=== PATIENT | male | born 1955 | race Caucasian/White ===

== ENCOUNTER 2018-03-12 11:55 | Emergency (ER) | payer SELFPAY ==
--- NOTE | 2018-03-12 13:34 | ER Document Report ---
ED Medical Screen (RME) - General TRAVEL OUTSIDE OF THE [place] IN LAST 30 DAYS: No - General Chief Complaint: Psych Problem Stated Complaint: FALL Time Seen by Provider: 03/12/18 12:23 Notes: 62 years old male presents today because of multiple falls and questionable suicidal ideation, homeless. He has a warrant for arrest for child abuse. He had a court date yesterday which he missed. History of Present Illness Chief Complaint: [ ] [ ] [] suicidal ideation [No] homicidal ideation [No] acute psychotic features History obtained from [patient] 62 years old male with multiple visits and substance abuse, police wanted him for the above. Presents today saying that he has been falling. He had a court date yesterday which he did not show up. According to the records given by the mental health department. And minor bruises in the left and right forearm. Denies any suicidal plan. Symptoms began: [past few days] Onset: [ gradual] Timing: [ constant] Quality: [As above ] Intensity: [ moderate to severe] Location: [ generalized] Radiation: [none] Migration: [none] Aggravating factors: [none] Relieving factors: [none] Review of Systems: All other systems negative as reviewed. CONSTITUTIONAL No Fever. EYES No eye pain. ENT No sore throat CARDIOVASCULAR No chest pain. RESPIRATORY No SOB. GI No abdominal pain, no vomiting, no diarrhea. GENITOURINARY No dysuria. SKIN No rash. NEUROLOGIC No headache. MUSCULOSKELETAL No back pain. Physical Exam CONSTITUTIONAL Vital signs reviewed, Patient has normal respiratory rate, Well appearing, Patient appears comfortable, normal stature. HEAD Atraumatic, Normocephalic. EYES Eyes are normal to inspection. ENT Ears normal to inspection, Nose examination normal. NECK No jugular venous distention. RESPIRATORY CHEST Breath sounds normal, No respiratory distress. CARDIOVASCULAR RRR, No murmurs, Normal S1 S2, No rub, No gallop. ABDOMEN Abdomen is nontender, No masses, Bowel sounds normal, No distension, No peritoneal signs. BACK Normal inspection. UPPER EXTREMITY Inspection normal. Multiple minor bruises noted in the forearm LOWER EXTREMITY Inspection cornel. NEURO No focal motor deficits. SKIN Skin is warm, Skin is dry, Skin is normal color. PSYCHIATRIC [Normal] affect.[ ] (ZACKERY VERONICA) - HPI Notes: 03/12/18 13:54 Dictated (ZACKERY VERONICA) - Related Data Allergies/Adverse Reactions: Penicillins Allergy (Verified 03/12/18 12:16) Past Medical History - Social History Chew tobacco use (# tins/day): No Frequency of alcohol use: Heavy Drug Abuse: Cocaine, Methamphetamine Lives with: Family Family history: Reviewed & Not Pertinent Pulmonary Medical History: Reports: Hx COPD Renal/ Medical History: Denies: Hx Peritoneal Dialysis Psychiatric Medical History: Reports: Hx Depression - anxiety Review of Systems - Review of Systems Notes: Dictated (ZACKERY VERONICA) Physical Exam - Vital signs Vitals: Temp Pulse Resp BP Pulse Ox 98.1 F 88 16 144/93 H 100 03/12/18 12:00 03/12/18 12:00 03/12/18 12:00 03/12/18 12:00 03/12/18 12:00 - Notes Notes: Dictated (ZACKERY VERONICA) Course - Re-evaluation Re-evalutation: 03/12/18 13:54 He was fully evaluated by mental health department. Recommended to be discharged. (ZACKERY VERONICA) - Vital Signs Vital signs: Temp Pulse Resp BP Pulse Ox 98.1 F 88 16 144/93 H 100 03/12/18 12:00 03/12/18 12:00 03/12/18 12:00 03/12/18 12:00 03/12/18 12:00 Doctor's Discharge - Discharge Clinical Impression: Alcohol abuse Depression Qualifiers: Depression Type: unspecified Qualified Code(s): F32.9 - Major depressive disorder, single episode, unspecified Condition: Stable Disposition: HOME, SELF-CARE Additional Instructions: You have been evaluated by both medical and behavioral health teams and have been deemed appropriate for discharge. You have been provided resource list of local mental health and substance abuse providers in addition to the homeless coalition packet. Please contact [facility], [facility], for any acute psychiatric assistance. CHRONIC ALCOHOLISM and ALCOHOL ABUSE: Your evaluation reveals evidence of chronic alcoholism, an addiction to alcohol. The tendency to alcoholism may be inherited. Chronic use of alcohol weakens muscles, causes fatty deposits in the liver , damages the stomach, makes you more prone to infections, and can cause defects in unborn children. In the long run, brain atrophy and cirrhosis of the liver result. You are also at greater risk for certain types of cancer, such as cancer of the mouth, throat, stomach, and liver. Counselling services are available to help you. In-hospital treatment programs often help. Support groups such as Alcoholics Anonymous can be very useful in beating this addiction. Your physician can make a referral for you. As alcoholics often are prone to other addictions, you should discuss your use of any other medications with the doctor. DEPRESSION: Your evaluation reveals that you have mental depression. While symptoms may be vague, they often include disturbance of sleep, fatigue, loss of appetite , and general loss of interest in life. While depression may be a side effect of drugs, or a reaction to a major change in your life, many cases have no known cause. If depression is acute, and related to a major loss in your life, you can expect it to clear completely with time. If you have been depressed a long time , are prone to repeated bouts of depression or low mood, or have been thinking of suicide, get help. Depression can be treated with anti-depressant medication and counselling. Long-term depression will often take a few weeks to clear, even with appropriate medication. Follow-up care is important. SUICIDAL IDEATION: Suicidal ideation is a common medical term for thoughts about suicide, which may be as detailed as a formulated plan, without the suicidal act itself. Although most people who undergo suicidal ideation do not commit suicide, some go on to make suicide attempts. The range of suicidal ideation varies greatly from fleeting to detailed planning, role playing, and unsuccessful attempts. While thoughts about suicide are common, most people do not carry out serious actions to commit suicide. Based upon your evaluation and discussion with you, we do not believe you are currently at risk to act upon your thoughts of suicide. You have agreed to return to the Emergency Department, at any time , if you feel inclined to act upon your suicidal thoughts. FOLLOW-UP CARE: If you experience worsening or a significant change in your symptoms, notify the physician immediately or return to the Emergency Department at any time for re-evaluation. Referrals: [facility] [Outside] - Follow up as needed
[2018-03-12 14:04] VITALS: BP 173/94
--- NOTE | 2018-03-12 16:17 | PSYCHOLOGICAL NOTE ---
Psych Note - Psych Note Date seen by psych provider: 03/12/18 Time seen by psych provider: 12:00 Psych Note: Reason for Consult: suicidal ideation 62 years old male presents today because of multiple falls and questionable suicidal ideation, homeless. Patient discloses that he has just been released from care home after being in it for 2 months. He states that prior to that he was at [facility] for attempted suicide. He states he was there for 3 days and was discharged with 30 days worth of medications; "I am out of medication now." He continued to disclose that while he was in care home and [facility] he did not receive his psychiatric medications consistently. He states that he has been very depressed because he has never had been in care home before and so has been very difficult for him. He continued to disclose that he is an alcoholic and has been drinking. 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 He continued disclosed that he applied for disability however last week on Friday received a letter in the mail asking him to submit some more paperwork and that overwhelmed him. He stated he came in because he decided he "did not want to ." He reports he does have plans to live with his cousin and was going to go there today or tomorrow. He states he does not have any money right now and had to borrow money for the cab to [facility] ED. Behavior health team contacted [facility] to obtain patient' s discharge plan which include medication recommendations. [facility] behavioral [facility] team indicates they have no record of patient receiving services from them. Patient is alert and orientated to person, place, time and circumstance. Mood is euthymic with congruent affect. Patient endorses passive suicidal ideation i.e. no plans means or intent. Patient denies homicidal ideation. Delusions are absent behaviors congruent with an intact reality based presentation i.e. organized linear thought process. Eye contact is fair. Conversational speech was within normal rate, tone and prosody. Intellectual abilities appear to be within the average range. Attention and concentration are fair. Insight, judgment, impulse control are fair. No medication recommendations at this time 291.9 (F10.99) unspecified alcohol related disorder per history provided by patient V62.5 (Z65.3) problems related to other legal circumstances V60.0 (Z59.0) homelessness Impression\\plan: Patient is cleared from acute psychiatric services. Patient does not meet IVC criteria per [place] GS 122C. Patient discloses passive suicidal ideation i.e. no plans means or intent. He reports many stressors which include economic and legal. He reports that he was on medication back and may have hers run out of medication and would like assistance to get back on the medication. Behavior health team was unable to confirm patient's story of going to [facility] in receiving medication from them. Patient reports he is an alcoholic. At this time would be more appropriate for the patient to receive outpatient mental health services that can follow him to assist him with both substance abuse and his mental health. Dr. Pacheco was consulted and the care management this patient; attending physicians in agreement with recommendations and disposition.
== END 2018-03-12 14:04 | disposition home or self-care (01) ==
LOC: ER 11:55
DX: F10.10 Alcohol abuse, uncomplicated (principal); F32.9 Major depressive disorder, single episode, unspecified; R45.851 Suicidal ideations; F19.10 Other psychoactive substance abuse, uncomplicated; J44.9 Chronic obstructive pulmonary disease, unspecified; Z91.81 History of falling
CPT/HCPCS: 99284